=== PATIENT | female | born 1965 | race Caucasian/White ===

== ENCOUNTER 2020-08-10 08:44 | Day surgery (SDC) | payer OTHER, SELFPAY ==
[~2020-08-10] VITALS: Ht 165.1 cm; Wt 113.4 kg
[2020-08-10] MEDS ORDERED: LR 1,000 ML IV SCH (12:15)
[2020-08-10] MEDS ORDERED: MEPERIDINE HCL/PF 25 MG/ML DISP.SYRIN IVP PRN (12:15)
[2020-08-10] MEDS ORDERED: ONDANSETRON HCL 4 MG/2 ML VIAL IVP PRN (12:15)
[2020-08-10] MEDS ORDERED: HYDROmorphone 1 MG/ML INJ. CARTRIDGE IVP PRN ×2 (12:15)
[2020-08-10] MEDS ORDERED: METOCLOPRAMIDE HCL 10 MG/2 ML VIAL IVP PRN (12:15)
[2020-08-10] MEDS ORDERED: MIDAZOLAM HCL 2 MG/2 ML VIAL (VERSED) IVP PRN (12:15)
[2020-08-10] MEDS ORDERED: LABETALOL 100 MG/ 20ML VIAL IVP PRN (12:15)
[2020-08-10] MEDS ORDERED: IBUPROFEN 800 MG TABLET PO PRN (12:45)
[2020-08-10] MEDS ORDERED: ONDANSETRON HCL 4 MG/2 ML VIAL IM PRN (12:45)
[2020-08-10] MEDS ORDERED: OXYCODONE/ACETAMINOPHEN 5-325 TABLET PO PRN ×2 (12:45)
[2020-08-10] MEDS ORDERED: METOCLOPRAMIDE HCL 10 MG/2 ML VIAL ONE (13:54)
[2020-08-10 18:11] VITALS: BP_SYST 121
== END 2020-08-10 14:55 | disposition home or self-care (01) ==
LOC: SDS 08:44 → SMU 08:46 → SDS 14:55
PROVIDERS: ATTEND Obstetrics & Gynecology
DX: N95.0 Postmenopausal bleeding (principal); N84.0 Polyp of corpus uteri; Z20.822 Contact with and (suspected) exposure to COVID-19
CPT/HCPCS: 58558; 88305; C1819; J2765; U0003